=== PATIENT | male | born 1990 | race Asian ===

== ENCOUNTER 2017-11-03 11:48 | Outpatient (CLI) | payer BC | END 2017-11-03 20:33 | disposition home or self-care (01) | LOC: RAD 11:48 | DX: M25.512 Pain in left shoulder (principal) ==

== ENCOUNTER 2018-04-01 10:36 | Emergency (ER) | payer OTHER ==
[~2018-04-01] VITALS: Ht 175.3 cm; Wt 72.6 kg
[2018-04-01 10:45] VITALS: BP 116/73; TEMP 97.9
== END 2018-04-01 11:00 | disposition home or self-care (01) ==
LOC: ED 10:36
DX: H61.22 Impacted cerumen, left ear (principal)
CPT/HCPCS: 99282